=== PATIENT | male | born 1945 | race African-American/Black ===

== ENCOUNTER 2019-12-26 10:29 | Inpatient (IN) | payer MEDICARE, MEDICAID ==
[~2019-12-26] VITALS: Ht 185.4 cm; Wt 72.1 kg
[~2019-12-26 10:29] MED LIST: ASPI-1158 PO; BACL-141 PO; CLON0.1T PO; CYCL-108 PO; DOCU-138 PO; GERITUSSIN PO; LOSA50TA3 PO; MYLANTA PO; PRO AIR INH; RANI-655 PO; SENN-22 PO; THEO200T17 PO; [UNRECOGNIZED DRUG - CODE] PO
[2019-12-26] MEDS ORDERED: KETOROLAC 60MG/2ML VIAL IM STA (11:51)
[2019-12-26 12:50] LABS: BASOPHILS % 0.8 % (0.0-2.0); EOSINOPHILS % 1.4 % (0.0-5.0); HEMATOCRIT. 41.4 % (42.0-52.0); HEMOGLOBIN. 13.8 g/dL (14.0-18.0); LYMPHOCYTES % 24.9 % (20.0-50.0); MEAN CORPUSCULAR HEMOGLOBIN 30.2 pg (28.0-32.0); MEAN CORPUSCULAR VOLUME 90.7 fL (80.0-94.0); MEAN PLATELET VOLUME 8.5 fl (7.4-10.4); MONOCYTES % 6.7 % (2.0-8.0); NEUTROPHILS % 66.2 % (40.0-76.0); PLATELET 261 x1000/uL (130-400); RED BLOOD CELL COUNT 4.57 mill/uL (4.7-6.1); RED CELL DISTRIBUTION WIDTH 16.8 % (11.6-14.6)
[2019-12-26 12:55] LABS: CLARITY URINE CLOUDY (CLEAR); COLOR URINE YELLOW (YELLOW); KETONES URINE 1+ (NEGATIVE); LEUKOCYTE ESTERASE URINE NEGATIVE (NEGATIVE); NITRITE URINE NEGATIVE (NEGATIVE); OCCULT BLOOD URINE NEGATIVE (NEGATIVE); PH URINE 7.5 (4.5-8.0); PROTEIN URINE NEGATIVE (NEGATIVE); SPECIFIC GRAVITY URINE 1.013 (1.005-1.030); UROBILINOGEN URINE 0.2 E.U./dL (0.2-1.0)
[2019-12-26 12:55] LABS: CHLORIDE 107 mEq/L (98-107)
[2019-12-26] MEDS ORDERED: MAGNESIUM/ALUMINUM HYDROXIDE/SIMETHICONE 30ML UDC PO STA (17:17)
[2019-12-26] MEDS ORDERED: VISCOUS LIDOCAINE 2% 15 ML UDC PO STA (17:17)
[2019-12-26] MEDS ORDERED: FAMOTIDINE 20MG/2ML VIAL IV STA (17:17)
[2019-12-26] MEDS ORDERED: PIPERACILLIN/TAZ 3.375G PREMIX 50 ML IV ONE (17:30)
[2019-12-27] VITALS (7 sets, daily range): BP systolic 103–123; BP diastolic 60–71
[2019-12-27] MEDS ORDERED: ALBUTEROL (0.083%) 2.5MG/3ML NEB HHN PRN (01:15)
[2019-12-27] MEDS ORDERED: MAGNESIUM/ALUMINUM HYDROXIDE/SIMETHICONE 30ML UDC PO PRN (03:15)
[2019-12-27] MEDS: CEFTRIAXONE 1 G PREMIX 50 ML IV SCH (06:04)
[2019-12-27] MEDS: THEOPHYLLINE ANHYDROUS 80 MG/15 ML 120ML PO SCH ×3 (06:05→17:29)
[2019-12-27 06:46] LABS: BASOPHILS % 0.3 % (0.0-2.0); EOSINOPHILS % 1.3 % (0.0-5.0); HEMATOCRIT. 38.1 % (42.0-52.0); HEMOGLOBIN. 12.5 g/dL (14.0-18.0); LYMPHOCYTES % 11.2 % (20.0-50.0); MEAN CORPUSCULAR HEMOGLOBIN 29.7 pg (28.0-32.0); MEAN CORPUSCULAR VOLUME 90.1 fL (80.0-94.0); MEAN PLATELET VOLUME 8.6 fl (7.4-10.4); MONOCYTES % 7.2 % (2.0-8.0); PLATELET 231 x1000/uL (130-400); RED BLOOD CELL COUNT 4.23 mill/uL (4.7-6.1); RED CELL DISTRIBUTION WIDTH 16.4 % (11.6-14.6)
[2019-12-27 07:52] LABS: CHLORIDE 108 mEq/L (98-107)
[2019-12-27] MEDS: CLONIDINE 0.1MG TABLET PO SCH ×2 (08:57→21:48)
[2019-12-27] MEDS: LOSARTAN POTASSIUM 50 MG TABLET PO SCH (08:58)
[2019-12-27] MEDS: DOCUSATE SODIUM 250MG CAPSULE PO SCH (08:58)
[2019-12-27] MEDS: ASPIRIN 81MG EC TABLET PO SCH (08:58)
[2019-12-27] MEDS: ENOXAPARIN 40MG/0.4ML SYR SUBCUT SCH (08:59)
[2019-12-27] MEDS ORDERED: THEOPHYLLINE ANHYDROUS 80 MG/15 ML 120ML PO SCH (09:00)
[2019-12-27] MEDS ORDERED: THEOPHYLLINE ANHYDROUS 300 MG PO SCH (09:00)
[2019-12-27] MEDS ORDERED: FAMOTIDINE 20MG TABLET PO SCH (09:00)
[2019-12-27] MEDS ORDERED: CEFTRIAXONE SODIUM 1 G/VIAL IM SCH (09:00)
[2019-12-27] MEDS: HYDROCODONE/ACETAMINOPHEN 5/325MG TABLET PO PRN ×2 (09:10→18:28)
[2019-12-27] MEDS ORDERED: MORPHINE SULFATE 2 MG/ML CPJ (NOT FOR IM USE) IV PRN (17:00)
[2019-12-27] MEDS: PANTOPRAZOLE SODIUM 40 MG/VIAL IV SCH (17:15)
[2019-12-27] MEDS ORDERED: CYCLOBENZAPRINE 10MG TABLET PO SCH (21:00)
[2019-12-27 21:58] LABS: PROTHROMBIN TIME 11.3 sec (9.6-11.0)
[2019-12-28] VITALS: BP 105/67
[2019-12-28] MEDS: BUDESONIDE 0.5MG/2ML NEB HHN SCH ×2 (00:49→10:41)
[2019-12-28 04:00] VITALS: BP 107/57
[2019-12-28 08:00] VITALS: BP 112/68
[2019-12-28] MEDS: CEFTRIAXONE 1 G PREMIX 50 ML IV SCH (08:00)
[2019-12-28] MEDS: PANTOPRAZOLE SODIUM 40 MG/VIAL IV SCH (08:04)
[2019-12-28] MEDS: LOSARTAN POTASSIUM 50 MG TABLET PO SCH (08:47)
[2019-12-28] MEDS: DOCUSATE SODIUM 250MG CAPSULE PO SCH (08:47)
[2019-12-28] MEDS: CLONIDINE 0.1MG TABLET PO SCH (08:47)
[2019-12-28] MEDS: ASPIRIN 81MG EC TABLET PO SCH (08:47)
[2019-12-28] MEDS: ENOXAPARIN 40MG/0.4ML SYR SUBCUT SCH (08:48)
[2019-12-28] MEDS: HYDROCODONE/ACETAMINOPHEN 5/325MG TABLET PO PRN (08:57)
[2019-12-28] MEDS ORDERED: IPRA3AMP9 NEB (11:17)
[2019-12-28] MEDS ORDERED: LEVO500T2 PO (11:17)
[2019-12-28] MEDS ORDERED: TRAM50TA94 MT (11:17)
[2019-12-28] MEDS ORDERED: PANT40SU MT (11:17)
[2019-12-28] MEDS ORDERED: P20 PO (11:17)
[2019-12-28 11:36] LABS: HEMATOCRIT 35.5 % (42.0-52.0); HEMOGLOBIN 11.9 g/dL (14.0-18.0); MEAN CORPUSCULAR VOLUME 89.7 fL (80.0-94.0); PLATELET 237 x1000/uL (130-400); RED BLOOD CELL COUNT 3.96 mill/uL (4.7-6.1); RED CELL DISTRIBUTION WIDTH 16.6 % (11.6-14.6)
[2019-12-28] MEDS: THEOPHYLLINE ANHYDROUS 80 MG/15 ML 120ML PO SCH ×2 (11:43)
[2019-12-28 11:46] VITALS: BP 112/68
[2019-12-28 11:48] LABS: CHLORIDE 109 mEq/L (98-107)
[2019-12-28 11:56] LABS: LDL CHOLESTEROL 61 mg/dL (5-100)
[2019-12-28 11:57] LABS: HDL CHOLESTEROL 66 mg/dL (40-59)
[2019-12-28 11:58] LABS: T4 FREE 1.13 ng/dL (0.76-1.46)
[2019-12-28 12:00] VITALS: BP 110/62
== END 2019-12-28 15:45 | DRG 690 ==
LOC: ER 10:29 → 6EST 18:22 → ENRESERV 20:25 → 6EST 12-27 00:47
PROVIDERS: ADMIT Internal Medicine; ATTEND Internal Medicine
DX: N39.0 Urinary tract infection, site not specified (principal); J06.9 Acute upper respiratory infection, unspecified; D64.9 Anemia, unspecified; E86.0 Dehydration; E88.09 Other disorders of plasma-protein metabolism, not elsewhere classified; G89.29 Other chronic pain; I10 Essential (primary) hypertension; K59.09 Other constipation; K76.89 Other specified diseases of liver; J44.9 Chronic obstructive pulmonary disease, unspecified; Z96.643 Presence of artificial hip joint, bilateral; R91.8 Other nonspecific abnormal finding of lung field; Z86.73 Personal history of transient ischemic attack (TIA), and cerebral infarction without residual deficits
CPT/HCPCS: 36415; 71045; 74176; 76700; 80048; 80053; 80061; 80076; 81003; 83036; 84153; 84439; 84443; 85025; 85027; 93005; 94640; 97162; 99285; C9113; J0696; J1650; J1885; J2543; J3490; J7626; G0103

== ENCOUNTER 2020-09-14 06:05 | Emergency (ER) | payer BC, MEDICAID ==
[~2020-09-14] VITALS: Ht 180.3 cm; Wt 68.0 kg
[~2020-09-14 06:05] MED LIST changes: +IPRA3AMP9 NEB; +LEVO500T2 PO; +P20 PO; +PANT40SU MT; +TRAM50TA94 MT; -[UNRECOGNIZED DRUG - CODE] PO
[2020-09-14] MEDS ORDERED: SODIUM CHLORIDE 0.9% 1000ML BAG (SEPSIS BOLUS) IV ONE (06:30)
[2020-09-14] MEDS ORDERED: MORPHINE SULFATE 4 MG/ML CPJ (NOT FOR IM USE) IV ONE (06:45)
[2020-09-14] MEDS ORDERED: ONDANSETRON HCL 4MG/2ML INJ IV ONE ×2 (06:45→10:00)
[2020-09-14 07:03] LABS: BASOPHILS % 0.7 % (0.0-2.0); EOSINOPHILS % 0.1 % (0.0-5.0); HEMATOCRIT. 44.9 % (42.0-52.0); HEMOGLOBIN. 15.2 g/dL (14.0-18.0); LYMPHOCYTES % 17.1 % (20.0-50.0); MEAN CORPUSCULAR HEMOGLOBIN 29.7 pg (28.0-32.0); MEAN CORPUSCULAR VOLUME 88.1 fL (80.0-94.0); MEAN PLATELET VOLUME 8.3 fl (7.4-10.4); MONOCYTES % 7.2 % (2.0-8.0); NEUTROPHILS % 74.9 % (40.0-76.0); PLATELET 314 x1000/uL (130-400); RED CELL DISTRIBUTION WIDTH 16.1 % (11.6-14.6)
[2020-09-14 07:06] LABS: CHLORIDE 96 mEq/L (98-107)
[2020-09-14 07:27] LABS: PROTHROMBIN TIME 10.6 sec (9.6-11.0)
[2020-09-14] MEDS ORDERED: POTASSIUM CHLORIDE 20MEQ TABLET SR PO ONE (07:30)
[2020-09-14] MEDS ORDERED: ACETAMINOPHEN 325MG TABLET PO ONE (07:30)
[2020-09-14] MEDS ORDERED: KCL 10MEQ/50ML PREMIX 100 ML IV SCH (07:30)
[2020-09-14] MEDS ORDERED: METRONIDAZOLE 500MG TABLET PO ONE (07:30)
[2020-09-14] MEDS ORDERED: CEFTRIAXONE 1 G PREMIX 50 ML IV ONE (07:30)
[2020-09-14 10:53] LABS: CLARITY URINE CLEAR (CLEAR); COLOR URINE YELLOW (YELLOW); KETONES URINE TRACE (NEGATIVE); LEUKOCYTE ESTERASE URINE 2+ (NEGATIVE); NITRITE URINE NEGATIVE (NEGATIVE); OCCULT BLOOD URINE NEGATIVE (NEGATIVE); PROTEIN URINE NEGATIVE (NEGATIVE); SPECIFIC GRAVITY URINE 1.012 (1.005-1.030)
[2020-09-14 11:53] VITALS: BP 107/64
== END 2020-09-14 12:16 | disposition short-term general hospital (02) ==
LOC: ER 06:11 → EDBEDREQTM 07:03 → ER 12:16 → CANBEDREQ 13:15
DX: A41.9 Sepsis, unspecified organism (principal); R10.9 Unspecified abdominal pain; E87.6 Hypokalemia; J44.9 Chronic obstructive pulmonary disease, unspecified; I10 Essential (primary) hypertension; Z86.73 Personal history of transient ischemic attack (TIA), and cerebral infarction without residual deficits; Z87.440 Personal history of urinary (tract) infections; F12.10 Cannabis abuse, uncomplicated; Z79.82 Long term (current) use of aspirin; Z79.899 Other long term (current) drug therapy
CPT/HCPCS: 36415; 71045; 74176; 80053; 81003; 83605; 83690; 84132; 84145; 84484; 85025; 85610; 87040; 87077; 87086; 87186; 87426; 93005; 96361; 96365; 96367; 96375; 96376; 99291; J0696; J2270; J2405; J3480; J7030

== ENCOUNTER 2021-02-02 10:13 | Emergency (ER) | payer BC, MEDICAID ==
[~2021-02-02] VITALS: Ht 182.9 cm; Wt 73.0 kg
[~2021-02-02 10:13] MED LIST changes: -ASPI-1158 PO; +ASPI-1406 PO
[2021-02-02 11:22] LABS: BASOPHILS % 0.7 % (0.0-2.0); EOSINOPHILS % 0.5 % (0.0-5.0); HEMATOCRIT. 40.7 % (42.0-52.0); HEMOGLOBIN. 13.2 g/dL (14.0-18.0); LYMPHOCYTES % 20.1 % (20.0-50.0); MEAN CORPUSCULAR HEMOGLOBIN 30.5 pg (28.0-32.0); MEAN CORPUSCULAR VOLUME 93.7 fL (80.0-94.0); MONOCYTES % 6.8 % (2.0-8.0); NEUTROPHILS % 71.9 % (40.0-76.0); PLATELET 199 x1000/uL (130-400); RED BLOOD CELL COUNT 4.34 mill/uL (4.7-6.1); RED CELL DISTRIBUTION WIDTH 15.3 % (11.6-14.6)
[2021-02-02 11:27] LABS: CHLORIDE 107 mEq/L (98-107)
[2021-02-02 11:59] LABS: CLARITY URINE CLEAR (CLEAR); COLOR URINE YELLOW (YELLOW); KETONES URINE TRACE (NEGATIVE); LEUKOCYTE ESTERASE URINE NEGATIVE (NEGATIVE); NITRITE URINE NEGATIVE (NEGATIVE); OCCULT BLOOD URINE NEGATIVE (NEGATIVE); PROTEIN URINE NEGATIVE (NEGATIVE); SPECIFIC GRAVITY URINE 1.017 (1.005-1.030)
[2021-02-02 12:55] LABS: PROTHROMBIN TIME 11.1 sec (9.6-11.0)
[2021-02-02] MEDS ORDERED: ACETAMINOPHEN 325MG TABLET PO ONE (16:00)
[2021-02-02 16:20] VITALS: BP 121/60
== END 2021-02-02 16:20 | disposition home or self-care (01) ==
LOC: ER 10:13
DX: S09.8XXA Other specified injuries of head, initial encounter (principal); S52.092A Other fracture of upper end of left ulna, initial encounter for closed fracture; M25.561 Pain in right knee; R03.0 Elevated blood-pressure reading, without diagnosis of hypertension; W18.39XA Other fall on same level, initial encounter; Y93.89 Activity, other specified; Y92.89 Other specified places as the place of occurrence of the external cause
CPT/HCPCS: 36415; 71045; 73080; 73560; 80053; 81003; 83605; 83880; 84484; 85025; 93005; 99285; A4565

== ENCOUNTER 2023-04-27 18:15 | Emergency (ER) | payer BC, MEDICAID ==
[~2023-04-27] VITALS: Ht 167.6 cm; Wt 70.0 kg
[~2023-04-27 18:15] MED LIST changes: +LOSA-413 PO; -LOSA50TA3 PO
[2023-04-27 18:26] VITALS: O2SAT 99
[2023-04-27 20:16] LABS: BASOPHILS % 0.5 % (0.0-2.0); EOSINOPHILS % 0.6 % (0.0-5.0); HEMATOCRIT. 34.8 % (42.0-52.0); HEMOGLOBIN. 11.3 g/dL (14.0-18.0); LYMPHOCYTES % 11.1 % (20.0-50.0); MEAN CORPUSCULAR HEMOGLOBIN 30.1 pg (28.0-32.0); MEAN CORPUSCULAR VOLUME 92.4 fL (80.0-94.0); MEAN PLATELET VOLUME 8.6 fl (7.4-10.4); MONOCYTES % 7.2 % (2.0-8.0); NEUTROPHILS % 80.6 % (40.0-76.0); PLATELET 222 x1000/uL (130-400); RED BLOOD CELL COUNT 3.76 mill/uL (4.7-6.1); RED CELL DISTRIBUTION WIDTH 16.2 % (11.6-14.6)
[2023-04-27 20:24] LABS: CHLORIDE 111 mEq/L (98-107)
[2023-04-28 10:18] VITALS: BP 100/60; PULSE 60; RESP 14; TEMP 98.8
== END 2023-04-28 10:18 | disposition home or self-care (01) ==
LOC: ER 18:15
DX: R55 Syncope and collapse (principal); J44.1 Chronic obstructive pulmonary disease with (acute) exacerbation; J45.909 Unspecified asthma, uncomplicated; I48.91 Unspecified atrial fibrillation; Z88.1 Allergy status to other antibiotic agents; Z88.8 Allergy status to other drugs, medicaments and biological substances; Z79.899 Other long term (current) drug therapy; Z98.890 Other specified postprocedural states
CPT/HCPCS: 36415; 71045; 80053; 84484; 85025; 93005; 99285